=== PATIENT | female | born 1960 | race Caucasian/White ===

== ENCOUNTER 2017-04-21 12:09 | Emergency (ER) | payer BC ==
--- NOTE | 2017-04-21 12:33 | ED Physician Chart ---
Chief Complaint/HPI - Patient Information Date Seen:: 04/21/17 Time Seen:: 12:30 Chief Complaint:: anxious History of Present Illness:: pt brought in by ems from work. was at work and felt very anxious w tingling in b arms and around mouth. no trauma hx. her sister had a cva recently...pt anxious... she has been noting palpitations on/off since last nt. no cp. no sob. no edema. she has never had a known cva..says when she gets sx similar to this she ignores them in past. pt started indocin today for gout related pain. Allergies:: Allergies Allergy/AdvReac Type Severity Reaction Status Date / Time No Known Allergies Allergy Verified 04/21/17 12:20 Vitals:: Vital Signs - 8 hr 04/21/17 12:10 Temp 98.7 F HR 94 RR 16 BP 168/100 O2 Sat % 98 Historian:: Patient Review of Systems - Review of Systems General/Constitutional: No fever, No chills, No weight loss, Weakness (?), No weakness, No diaphoresis, No edema, No loss of appetite, Other (anxious) Skin: No skin lesions, No rash, No bruising Head: No headache, No light-headedness Eyes: No loss of vision, No pain, No diplopia ENT: No earache, No nasal drainage, No sore throat, No tinnitus Neck: No neck pain, No swelling, No thyromegaly, No stiffness, No mass noted Cardio Vascular: No chest pain, No palpitations, No PND, No orthopnea, No edema Pulmonary: No SOB, No cough, No sputum, No wheezing GI: No nausea, No vomiting, No diarrhea, No pain, No melena, No hematochezia, No constipation, No hematemesis G/U: No dysuria, No frequency, No hematuria Musculoskeletal: No bone or joint pain, No back pain, No muscle pain Endocrine: No polyuria, No polydipsia Psychiatric: No prior psych history, No depression, Anxiety, No suicidal ideation Hematopoietic: No bruising, No lymphadenopathy Allergic/Immuno: No urticaria, No angioedema Neurological: No syncope, No focal symptoms, No weakness, No paresthesia, No headache, No seizure, No dizziness, No confusion, No vertigo Past Medical History - Past Medical History Past Medical History: HTN, Other (gout recent dx, anxiety hx, "pre-diabetic") Social History: Other (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) Medication: Reviewed Family Medical History - Family Member Mother Hx Family Hypertension: Yes Labs/Radiology/EKG Results - Lab Results Results: Laboratory Tests 04/21/17 04/21/17 04/21/17 12:38 12:38 12:38 WBC 8.2 RBC 5.15 H Hgb 13.9 Hct 41.7 MCV 80.9 L MCH 26.9 L MCHC Differential 33.3 RDW 13.8 Plt Count 257 MPV 9.8 Neutrophils % 72.0 Lymphocytes % 21.0 Monocytes % 4.9 Eosinophils % 1.8 Basophils % 0.3 PT INR PTT (Actin FS) Sodium 133 L Potassium 3.3 L Chloride 102 Carbon Dioxide 25.3 Anion Gap 9.0 BUN 17 Creatinine 0.5 L Est GFR ( Amer) > 60.0 Est GFR (Non-Af Amer) > 60.0 BUN/Creatinine Ratio 34.0 Glucose 239 H Hemoglobin A1c % Calcium 8.9 Total Bilirubin 0.5 AST 16 ALT 15 Alkaline Phosphatase 84 Creatine Kinase Troponin I 0.01 Total Protein 6.8 Albumin 3.9 Globulin 2.9 Albumin/Globulin Ratio 1.3 POC Ur Test 04/21/17 04/21/17 04/21/17 12:38 12:38 12:38 WBC RBC Hgb Hct MCV MCH MCHC Differential RDW Plt Count MPV Neutrophils % Lymphocytes % Monocytes % Eosinophils % Basophils % PT 9.8 INR 0.94 PTT (Actin FS) 24.7 L Sodium Potassium Chloride Carbon Dioxide Anion Gap BUN Creatinine Est GFR ( Amer) Est GFR (Non-Af Amer) BUN/Creatinine Ratio Glucose Hemoglobin A1c % 7.5 H Calcium Total Bilirubin AST ALT Alkaline Phosphatase Creatine Kinase 38 Troponin I Total Protein Albumin Globulin Albumin/Globulin Ratio POC Ur Test 04/21/17 12:50 WBC RBC Hgb Hct MCV MCH MCHC Differential RDW Plt Count MPV Neutrophils % Lymphocytes % Monocytes % Eosinophils % Basophils % PT INR PTT (Actin FS) Sodium Potassium Chloride Carbon Dioxide Anion Gap BUN Creatinine Est GFR ( Amer) Est GFR (Non-Af Amer) BUN/Creatinine Ratio Glucose Hemoglobin A1c % Calcium Total Bilirubin AST ALT Alkaline Phosphatase Creatine Kinase Troponin I Total Protein Albumin Globulin Albumin/Globulin Ratio POC Ur Test Negative - Radiology Results Results: ct head nad - EKG Interpretations EKG Time:: 13:35 Rate & Rhythm: nsr 81 [place]: 52 Intervals: nrml st/t waves ED Septic Shock - . Is Septic Shock (SBP<90, OR Lactate>4 mmol\\L) present?: No - <6hrs of presentation: Vital Signs: Vital Signs - 8 hr 04/21/17 12:10 Temp 98.7 F HR 94 RR 16 BP 168/100 O2 Sat % 98 Reassessment (Disposition) - Reassessment Reassessment:: (2;20p) rechk bp 140/87. pt with no sx now. no numb. no weakness. no confusion. d/w pt about her glucose elevation..suspect she has DM not pre-DM. advise she see pmd tmrw..pt already has appt scheduled. discuss palpitations w her pmd tmrw. she says she is compliant w her 3 bp meds. advise she pay close attention to this. avoid salt. no strenuous activity until seen by pmd. stay w family..return if neuro change or cp or sob Reassessment Condition:: Improved - Diagnosis Diagnosis:: 1 anxiety / panic attack 2 suboptimal ctrld htn 3 DM 4 palpitations - Aftercare/Follow up Instructions Aftercare/Follow-Up Instructions:: Counseled pt & family regarding lab results/ diagnosis & need follow up - Patient Disposition Discharge/Transfer:: Home Condition at Disposition:: Improved
[2017-04-21 12:48] LABS: % BASOPHILS 0.3 % (0.0-2.0); % EOSINOPHILS 1.8 % (0.0-5.0); % MONOCYTES 4.9 % (2.0-10.0); HEMATOCRIT 41.7 % (35.0-45.0); HEMOGLOBIN 13.9 gm/dL (11.7-15.5); MEAN CELL VOLUME 80.9 fl (81-100); MEAN CORPUSCULAR HEMOGLOBIN 26.9 pg (27.0-31.0); MEAN CORPUSCULAR HGB CONC 33.3 pg (28.0-36.0); MEAN PLATELET VOLUME 9.8 fl; PLATELET COUNT 257 Th/cmm (150-400); RED BLOOD COUNT 5.15 Mil/cmm (3.80-5.10); RED CELL DISTRIBUTION WIDTH 13.8 % (11.5-20.0); WHITE BLOOD COUNT 8.2 Th/cmm (4.8-10.8)
[2017-04-21 13:07] LABS: ALB/GLOB RATIO 1.3 (1.0-1.8); ALKALINE PHOSPHATASE 84 U/L (34-104); BILIRUBIN,TOTAL 0.5 mg/dL (0.3-1.0); BUN - UREA NITROGEN 17 mg/dL (7-25); CALCIUM SERUM 8.9 mg/dL (8.6-10.3); CARBON DIOXIDE 25.3 mEq/L (21.0-31.0); CHLORIDE 102 mEq/L (98-107); CREATININE - SERUM 0.5 mg/dL (0.6-1.2); GLUCOSE 239 mg/dL (70-105); POTASSIUM SERUM 3.3 mEq/L (3.5-5.1); SGOT 16 U/L (13-39); SGPT/ALT 15 U/L (7-52); SODIUM SERUM 133 mEq/L (136-145)
--- NOTE | 2017-04-21 13:07 | Diagnostic Imaging Report ---
Head CT without intravenous contrast Indication: Arm numbness Comparison: None Technique: Axial images were obtained from the vertex to the skull base without IV contrast. Coronal reconstructions were made. Total DLP: [id number], [id number] FINDINGS: Images of the brain obtained without contrast demonstrate no acute hemorrhage. No mass lesions identified. The ventricles and basal cisterns are patent. The wright-white matter differentiation is preserved. There is no mass effect or midline shift. No skull fractures identified. No soft tissue swelling. The paranasal sinuses are clear. IMPRESSION: No CT evidence of an acute abnormality.
[2017-04-21 13:26] LABS: INR 0.94 (0.5-1.4); PROTHROMBIN TIME (TEST) 9.8 SECONDS (9.5-11.5)
== END 2017-04-21 14:29 | disposition home or self-care (01) ==
LOC: ER 12:09
DX: F41.9 Anxiety disorder, unspecified (principal); I10 Essential (primary) hypertension; E11.9 Type 2 diabetes mellitus without complications; R00.2 Palpitations
CPT/HCPCS: 36415-UA; 70450-TC; 80053-TC; 81025-TC; 82550-TC; 83036-90; 84484-TC; 85025-TC; 85610-TC; 93005; Z7610